=== PATIENT | female | born 2005 | race Caucasian/White ===

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

== ENCOUNTER → 2024-06-20 | Outpatient (REF) | payer BC ==
[2024-06-20 13:50] LABS: C REACTIVE PROTEIN QUANTITATIV < 0.40 MG/DL (<1.0)
[2024-06-20 13:51] LABS: RHEUMATOID FACTOR QUANT 6.7 IU/ML (<14)
== END ==
LOC: M LAB REF 12:44
PROVIDERS: ATTEND Physician Assistant Medical
DX: R53.83 Other fatigue (principal); A69.20 Lyme disease, unspecified